=== PATIENT | female | born 1950 | race Caucasian/White ===

== ENCOUNTER 2019-02-02 18:56 | Observation (INO) | payer MEDICARE, BC ==
[~2019-02-02] VITALS: Ht 167.6 cm; Wt 96.8 kg
[2019-02-02 19:43] LABS: EOS # 0.1 (0.04-0.40); EOS % 0.7 % (1.0-5.0); HEMATOCRIT 42.1 % (37.0-47.0); HEMOGLOBIN 13.6 g/dL (12.5-16.0); LYMPH# 1.9 (1.50-4.00); MEAN CELL VOLUME 86 fl (78-100); MEAN CORPUSCULAR HEMOGLOBIN 28 pg (27-31); MEAN CORPUSCULAR HGB CONC 32 g/dL (33-37); MEAN PLATELET VOLUME 10.7 fl (7.4-10.4); PLATELET COUNT 308 K/mm3 (130-400); RED BLOOD COUNT 4.89 M/mm3 (4.10-5.30); RED CELL DISTRIBUTION WIDTH 15.4 % (11.5-14.5)
[2019-02-02 19:50] LABS: URINE APPEARANCE CLOUDY; URINE BILIRUBIN NEGATIVE (NEGATIVE); URINE BLOOD NEGATIVE (NEGATIVE); URINE COLOR YELLOW; URINE GLUCOSE NEGATIVE (NEGATIVE); URINE KETONE NEGATIVE (NEGATIVE); URINE LEUKOCYTE ESTERASE 1+ (NEGATIVE); URINE NITRATE NEGATIVE (NEGATIVE); URINE PROTEIN(semi-quant) TRACE mg/dL (NEGATIVE); URINE UROBILINOGEN NORMAL (NORMAL)
[2019-02-02 19:51] LABS: ALBUMIN 4.3 g/dL (3.4-4.8); POTASSIUM 4.2 mmol/L (3.5-5.1)
[2019-02-02 19:52] LABS: SODIUM 143 mmol/L (136-145)
[2019-02-02 19:53] LABS: CALCIUM 9.8 mg/dL (8.3-10.5)
[2019-02-02 19:54] LABS: GLUCOSE 109 mg/dL (65-105); TOTAL PROTEIN 7.1 g/dL (6.2-8.1)
[2019-02-02 19:55] LABS: CARBON DIOXIDE 21 mmol/L (23-31)
[2019-02-02 19:56] LABS: TOTAL BILIRUBIN 0.4 mg/dL (0.2-1.2)
[2019-02-02 19:59] LABS: AST-SGOT 11 U/L (5-34)
[2019-02-02 20:12] LABS: ALT/SGPT < 6 U/L (0-55); TROPONIN-I < 0.03 ng/mL (<0.030)
[2019-02-02 20:34] LABS: D-DIMER 0.59 mg/L FEU (0.15-0.50)
[2019-02-02] MEDS ORDERED: WOMEN'S DAILY F1 TAB PO (22:03)
[2019-02-02] MEDS ORDERED: AMANTADINE100 M1 PO (22:04)
[2019-02-02] MEDS ORDERED: TYLENOL325 M1 PO (22:04)
[2019-02-02] MEDS ORDERED: TROSPIUM CHLORI20 MG PO (22:05)
[2019-02-02] MEDS ORDERED: DITROPAN 5MG TAB5 MG PO (22:05)
[2019-02-02] MEDS ORDERED: CYMBALTA30 M1 PO (22:05)
[2019-02-02] MEDS ORDERED: NORVASC 5MG5 MG/TAB PO (22:05)
[2019-02-02] MEDS ORDERED: D3-5000 90 MG-51 TAB PO (22:06)
[2019-02-02] MEDS ORDERED: CELECOXIB200 M1 PO (22:06)
[2019-02-02] MEDS ORDERED: CARBIDOPA (22:07)
[2019-02-02] MEDS ORDERED: LEVODOPA (22:07)
[2019-02-02 23:16] VITALS: BP 182/97
[2019-02-02 23:21] VITALS: BP 182/97
[2019-02-03 02:50] VITALS: BP 138/79
[2019-02-03 06:34] VITALS: BP 142/80
[2019-02-03 11:18] VITALS: BP 131/83
[2019-02-03 14:58] VITALS: BP 121/81
[2019-02-03 18:07] VITALS: BP 116/84
[2019-02-03 23:20] VITALS: BP 158/89
[2019-02-04 02:58] VITALS: BP 141/72
[2019-02-04 06:24] VITALS: BP 147/87
[2019-02-04] MEDS ORDERED: MACROBID 100 M100 MG PO (09:22)
[2019-02-04] MEDS ORDERED: ATIVAN0.5 MG PO (09:23)
[2019-02-04] MEDS ORDERED: DITROPAN 5MG TAB5 MG PO (09:25)
[2019-02-04 11:09] VITALS: BP 139/74
[2019-02-07] MEDS ORDERED: VIBRAMYCIN HYC100 MG PO (09:49)
== END 2019-02-04 13:01 | disposition home or self-care (01) ==
LOC: ED 18:56 → MED/SURG 22:44
PROVIDERS: ADMIT Physician Assistant
DX: I10 Essential (primary) hypertension (principal); F41.9 Anxiety disorder, unspecified; N39.0 Urinary tract infection, site not specified; G20 Parkinson's disease
CPT/HCPCS: G0378; J1650; J2060; J2930; J7030; Q9967